=== PATIENT | female | born 1955 | race Caucasian/White ===

== ENCOUNTER → 2019-06-05 | Outpatient (CLI) | payer BC ==
--- NOTE | 2019-06-05 10:45 | RAD ---
EXAM DESCRIPTION: Foot,Left 3 Views CLINICAL HISTORY: Foot pain COMPARISON: None Available. TECHNIQUE: AP, LATERAL, AND OBLIQUE FINDINGS: The visualized bones appear poorly mineralized. No acute fracture or dislocation. The soft tissues appear grossly unremarkable. Mild degenerative changes identified in the first metatarsophalangeal joint. Small plantar calcaneal spur. 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 Electronically signed by: Debora Johns MD 06/05/2019 10:43 AM CDT
== END ==
LOC: RAD 08:42
PROVIDERS: ATTEND Orthopaedic Surgery
DX: M19.072 Primary osteoarthritis, left ankle and foot (principal)